=== PATIENT | female | born 1970 ===

== ENCOUNTER 2021-06-06 08:47 | Emergency (ER) | payer OTHER ==
[2021-06-06 08:56] VITALS: BP 125/90; RESP 18
--- NOTE | 2021-06-06 09:14 | ED ---
Skin/Abscess/FB HPI - General Chief complaint: Skin/Abscess/Foreign Body Stated complaint: skin issues on face Time Seen by Provider: 06/06/21 09:00 Source: patient, RN notes reviewed Mode of arrival: ambulatory Limitations: no limitations - History of Present Illness Initial comments: Patient is a 50-year-old female that presents to emergency department complaining of right-sided face cystic inflammatory acne just inferior her ear. She notes that she has follow-up with a green building materials distributor in the past and was prescribed Bactrim and be processing cream for her nose. She notes that both of these things helped greatly. She notes that she has not follow-up with dermatology in a while. She does not want any incision and drainage needle pokes or procedures done. She is just requesting antibiotics and ointment. He was otherwise a well-appearing 50-year-old female in no apparent distress or pain. She denied any other issues or complaints. She denied chest pain shortness of breath headache nausea vomiting diarrhea constipation fever fatigue chills. - Related Data Previous Rx's Medication Instructions Recorded predniSONE [Deltasone] 20 mg PO BID #8 tab 08/29/15 Ibuprofen [Motrin] 600 mg PO Q6HR PRN #20 tab 01/12/16 traMADol HCl [Ultram] 50 mg PO Q4H PRN #20 tab 01/12/16 Nystatin 100,000 Unit/ml Susp 5 ml PO QID 10 Days ml 05/17/16 [Mycostatin Oral Susp] Mupirocin 2% Oint [Bactroban 2% 1 applic NASAL DAILY #22 gm 06/06/21 Oint] Sulfamethox-Tmp 800-160Mg [Bactrim 1 each PO Q12HR #20 tab 06/06/21 Ds] Allergies Allergy/AdvReac Type Severity Reaction Status Date / Time No Known Allergies Allergy Verified 06/06/21 08:52 Review of Systems ROS Statement: Those systems with pertinent positive or pertinent negative responses have been documented in the HPI. ROS Other: All systems not noted in ROS Statement are negative. Past Medical History Past Medical History: No Reported History Additional Past Medical History / Comment(s): Lupus History of Any Multi-Drug Resistant Organisms: MRSA Date of last positivie culture/infection: 2017 MDRO Source:: face Past Surgical History: No Surgical Hx Reported Past Psychological History: No Psychological Hx Reported Smoking Status: Current some day smoker Past Alcohol Use History: Occasional Past Drug Use History: None Reported General Exam Limitations: no limitations General appearance: alert, in no apparent distress Head exam: Present: atraumatic, normocephalic, normal inspection Eye exam: Present: normal appearance, PERRL, EOMI. Absent: scleral icterus, conjunctival injection, periorbital swelling ENT exam: Present: normal exam, mucous membranes moist Neck exam: Present: normal inspection Respiratory exam: Present: normal lung sounds bilaterally. Absent: respiratory distress, wheezes, rales, rhonchi, stridor Cardiovascular Exam: Present: regular rate, normal rhythm, normal heart sounds. Absent: systolic murmur, diastolic murmur, rubs, gallop, clicks Extremities exam: Present: normal inspection, full ROM, normal capillary refill. Absent: tenderness, pedal edema, joint swelling, calf tenderness Neurological exam: Present: alert, oriented X3 Psychiatric exam: Present: normal affect, normal mood Skin exam: Present: warm, dry, intact, normal color, other (Multiple small cystic lesions to the right side of face.). Absent: rash Course Vital Signs 06/06/21 08:52 Temperature 98.8 F Pulse Rate 118 H Respiratory 18 Rate Blood Pressure 125/90 O2 Sat by Pulse 98 Oximetry Medical Decision Making - Medical Decision Making 50-year-old female with cystic inflammatory acne denies her face. Antibiotics will be sent patient's pharmacy per her request. Patient declined wanting any procedures incision and drainages. Case discussed with Dr. Corrales, patient discharge home. With follow-up to primary care. Disposition Clinical Impression: Cystic acne, Inflammatory acne Disposition: HOME SELF-CARE Condition: Stable Instructions (If sedation given, give patient instructions): Cyst (ED) Additional Instructions: Please return to the Emergency Department if symptoms worsen or any other concerns. Take antibiotics as prescribed. Use anabolic ointment as prescribed. Follow-up with primary care and green building [employer] distributor as possible preferably next 1-2 days. Is patient prescribed a controlled substance at d/c from ED?: No Referrals: Alisa Moses MD [Primary Care Provider] - 1-2 days Time of Disposition: 09:13
[2021-06-06 09:43] VITALS: PULSE 84; TEMP 98.4
== END 2021-06-06 09:41 | disposition home or self-care (01) ==
LOC: EC 08:47
DX: L70.9 Acne, unspecified (principal); F17.200 Nicotine dependence, unspecified, uncomplicated
CPT/HCPCS: 99282

== ENCOUNTER 2022-07-18 08:47 | Emergency (ER) | payer OTHER ==
[2022-07-18] MEDS ORDERED: SULFAMETHOX-TMP 800-160MG 1 EACH TAB PO STA (09:31)
--- NOTE | 2022-07-18 09:36 | ED ---
General Adult HPI - General Chief complaint: Skin/Abscess/Foreign Body Stated complaint: Facial swelling Time Seen by Provider: 07/18/22 09:03 Source: patient Mode of arrival: ambulatory Limitations: no limitations - History of Present Illness Initial comments: 51-year-old female presents to the emergency room for a chief complaint of facial infection. Patient states she is having a "MRSA outbreak" on her face. This started a couple days ago. It is on her nose and her forehead. Patient denies any fevers or severe headaches or vision changes. Patient states this has happened in the past and she usually gets Bactrim which helps.Patient has no other complaints at this time including shortness of breath, chest pain, abdominal pain, nausea or vomiting, headache, or visual changes. - Related Data Previous Rx's Medication Instructions Recorded predniSONE [Deltasone] 20 mg PO BID #8 tab 08/29/15 Ibuprofen [Motrin] 600 mg PO Q6HR PRN #20 tab 01/12/16 traMADol HCl [Ultram] 50 mg PO Q4H PRN #20 tab 01/12/16 Nystatin 100,000 Unit/ml Susp 5 ml PO QID 10 Days ml 05/17/16 [Mycostatin Oral Susp] Mupirocin 2% Oint [Bactroban 2% 1 applic NASAL DAILY #22 gm 06/06/21 Oint] Mupirocin 2% Oint [Bactroban 2% 1 applic NASAL DAILY #22 gm 06/06/21 Oint] Mupirocin 2% Oint [Bactroban 2% 1 applic NASAL DAILY #22 gm 06/06/21 Oint] Sulfamethox-Tmp 800-160Mg [Bactrim 1 tab PO Q12HR 10 Days #20 tab 06/06/21 DS 800-160 mg] Sulfamethox-Tmp 800-160Mg [Bactrim 1 each PO Q12HR #20 tab 06/06/21 Ds] Sulfamethox-Tmp 800-160Mg [Bactrim 1 each PO Q12HR #20 tab 06/06/21 Ds] Sulfamethox-Tmp 800-160Mg [Bactrim 1 tab PO Q12HR #20 tab 07/18/22 DS 800-160 mg] Allergies Allergy/AdvReac Type Severity Reaction Status Date / Time No Known Allergies Allergy Verified 07/18/22 09:00 Review of Systems ROS Statement: Those systems with pertinent positive or pertinent negative responses have been documented in the HPI. ROS Other: All systems not noted in ROS Statement are negative. Past Medical History Past Medical History: No Reported History Additional Past Medical History / Comment(s): Lupus History of Any Multi-Drug Resistant Organisms: MRSA Date of last positivie culture/infection: 2017 MDRO Source:: face Past Surgical History: No Surgical Hx Reported Past Psychological History: No Psychological Hx Reported Smoking Status: Current some day smoker Past Alcohol Use History: Occasional Past Drug Use History: None Reported General Exam Limitations: no limitations General appearance: alert, in no apparent distress Head exam: Present: atraumatic Eye exam: Present: normal appearance, PERRL, EOMI. Absent: scleral icterus, conjunctival injection ENT exam: Present: other (Mild erythema consistent with cellulitis on the left external nose 2 cm x 2 cm. Similar area on right forehead 2 cm x 2 cm. No abscess visible inside the nose. ) Course Vital Signs 07/18/22 08:58 Temperature 97.8 F Pulse Rate 79 Respiratory 20 Rate Blood Pressure 120/84 O2 Sat by Pulse 99 Oximetry Medical Decision Making - Medical Decision Making Patient has mild cellulitis of the nose and forehead without evidence of abscess at this time. Will be treated with Bactrim. Given strict return parameters including those of abscess formation. Patient will follow up with primary care in the next day or 2 for a recheck. She will return here for any worsening symptoms which were discussed with her. Disposition Clinical Impression: Cellulitis Disposition: HOME SELF-CARE Condition: Good Instructions (If sedation given, give patient instructions): Cellulitis (ED) Additional Instructions: Take antibiotic as directed. Monitor for any abscess formation and return if this occurs. Return for any other worsening symptoms. Follow-up with primary care in 1-2 days for recheck. Prescriptions: Sulfamethox-Tmp 800-160Mg [Bactrim DS 800-160 mg] 1 tab PO Q12HR #20 tab Is patient prescribed a controlled substance at d/c from ED?: No Referrals: Benton Junior MD [STAFF PHYSICIAN] - 1-2 days Time of Disposition: 09:35
[2022-07-18 09:49] VITALS: BP 131/71; PULSE 72; RESP 18; TEMP 97.9
== END 2022-07-18 09:50 | disposition home or self-care (01) ==
LOC: EC 08:47
DX: L03.90 Cellulitis, unspecified (principal); F17.200 Nicotine dependence, unspecified, uncomplicated
CPT/HCPCS: 99283